=== PATIENT | female | born 1980 | race Caucasian/White ===

== ENCOUNTER 2018-01-05 09:17 | Outpatient (CLI) | payer OTHER | END 2018-01-05 09:53 | disposition home or self-care (01) | LOC: NST 09:17 | DX: Z34.83 Encounter for supervision of other normal pregnancy, third trimester (principal) ==

== ENCOUNTER 2018-01-19 10:38 | Outpatient (CLI) | payer OTHER | END 2018-01-19 13:16 | disposition home or self-care (01) | LOC: NST 10:38 | DX: Z34.83 Encounter for supervision of other normal pregnancy, third trimester (principal) ==